=== PATIENT | female | born 1995 | race American Indian/Alaskan Native ===

== ENCOUNTER 2017-11-16 17:18 | Emergency (ER) | payer OTHER ==
[2017-11-16 18:18] LABS: Basophils % (Auto) 0.3 % (0.0-1.8); Eosinophils % (Auto) 0.1 % (0.0-4.3); Hematocrit 41.9 % (30.3-42.9); Hemoglobin 14.2 gm/dl (10.1-14.3); Mean Corpuscular HGB Conc 34 % (30-34); Mean Corpuscular Hemoglobin 32 pg (28-32); Mean Corpuscular Volume 96 fl (79-97); Platelet Count 293 K/mm3 (140-440); Red Blood Count 4.39 M/mm3 (3.65-5.03); Red Cell Distribution Width 12.9 % (13.2-15.2); White Blood Count 5.7 K/mm3 (4.5-11.0)
--- NOTE | 2017-11-16 18:21 | Emergency Department Report ---
ED Shortness of Breath HPI - General Chief Complaint: Dyspnea/Respdistress Stated Complaint: VOMITING/NAUSEA/VISUAL SPOTS Source: patient Mode of arrival: Ambulatory Limitations: No Limitations - History of Present Illness Initial Comments: 21-year-old female with past medical history anxiety presents with complaint of onset of palpitations while resting at home. Patient also complains of slightly sore throat. Patient states that she got slightly lightheaded for a few seconds and then the sensation went away. Patient on exam is awake alert and oriented 3 not in acute distress. States she feels slight palpitations. For lucid awake alert and oriented. Denies dysuria or increased urinary frequency abdominal pain shortness of breath. States that when she had this episode she felt slightly short of breath but it dissipated quickly. Patient denies alcohol smoking or any drug use adamantly. Denies using any stimulants. States she felt slightly anxious earlier. MD Complaint: shortness of breath, cough -: This evening Severity: mild Context: anxiety - Related Data Previous Rx's Medication Instructions Recorded Last Taken Type Hydroxyzine HCl 25 mg PO Q8H PRN #12 tablet 11/16/17 Unknown Rx Ibuprofen [Motrin] 600 mg PO Q8H PRN #30 tablet 11/16/17 Unknown Rx Allergies Allergy/AdvReac Type Severity Reaction Status Date / Time No Known Allergies Allergy Unverified 11/16/17 17:38 ED Review of Systems ROS: Stated complaint: VOMITING/NAUSEA/VISUAL SPOTS Other details as noted in HPI Constitutional: denies: chills, fever Eyes: denies: eye pain, eye discharge, vision change ENT: denies: ear pain, throat pain Respiratory: denies: cough, shortness of breath, wheezing Cardiovascular: palpitations. denies: chest pain Endocrine: no symptoms reported Gastrointestinal: denies: abdominal pain, nausea, diarrhea Genitourinary: denies: urgency, dysuria, discharge Musculoskeletal: denies: back pain, joint swelling, arthralgia Skin: denies: rash, lesions Neurological: denies: headache, weakness, paresthesias Psychiatric: denies: anxiety, depression Hematological/Lymphatic: denies: easy bleeding, easy bruising ED Past Medical Hx - Past Medical History Previous Medical History?: No - Surgical History Past Surgical History?: No - Social History Smoking Status: Never Smoker Substance Use Type: None - Medications Home Medications: Home Medications Medication Instructions Recorded Confirmed Last Taken Type Hydroxyzine HCl 25 mg PO Q8H PRN #12 tablet 11/16/17 Unknown Rx Ibuprofen [Motrin] 600 mg PO Q8H PRN #30 tablet 11/16/17 Unknown Rx ED Physical Exam - General Limitations: No Limitations General appearance: alert, in no apparent distress - Head Head exam: Present: atraumatic, normocephalic - Eye Eye exam: Present: normal appearance, PERRL, EOMI - ENT ENT exam: Present: mucous membranes moist - Neck Neck exam: Present: normal inspection - Respiratory Respiratory exam: Present: normal lung sounds bilaterally. Absent: respiratory distress - Cardiovascular Cardiovascular Exam: Present: normal rhythm, tachycardia. Absent: systolic murmur, diastolic murmur, rubs, gallop - GI/Abdominal GI/Abdominal exam: Present: soft, normal bowel sounds - Extremities Exam Extremities exam: Present: normal inspection - Back Exam Back exam: Present: normal inspection - Neurological Exam Neurological exam: Present: alert, oriented X3 - Psychiatric Psychiatric exam: Present: normal affect, normal mood - Skin Skin exam: Present: warm, dry, intact, normal color. Absent: rash ED Course Vital Signs 11/16/17 11/16/17 11/16/17 17:33 18:55 20:58 Temperature 100.7 F H Pulse Rate 133 H 106 H Respiratory 18 20 18 Rate Blood Pressure 126/83 Blood Pressure 129/79 [Left] O2 Sat by Pulse 100 99 Oximetry ED Medical Decision Making - Lab Data Result diagrams: 11/16/17 18:04 11/16/17 18:04 - Medical Decision Making A/P: Anxiety attack 1-patient feels significantly better. Tachycardia has improved. No longer febrile. 2-as patient was tachycardic with some pleurisy I ordered d-dimer which was slightly positive. CTA of chest performed which shows no overt pulmonary embolism. I discussed this with . Strep negative, influenza negative 3-hydroxyzine when necessary for anxiety. I advised the patient to remain well- hydrated. Patient has no suicidal or homicidal ideation. No clinical intoxication noted. Patient is fully lucid awake alert and oriented and not in acute distress. 4-follow-up with primary care doctor. I referred patient. Critical care attestation.: If time is entered above; I have spent that time in minutes in the direct care of this critically ill patient, excluding procedure time. ED Disposition Clinical Impression: Anxiety, Tachycardia Disposition: DC-01 TO HOME OR SELFCARE Is pt being admited?: No Does the pt Need Aspirin: No Condition: Stable Instructions: Anxiety (ED), Upper Respiratory Infection (ED), Viral Syndrome ( ED) Prescriptions: Hydroxyzine HCl 25 mg PO Q8H PRN #12 tablet PRN Reason: Anxiety Ibuprofen [Motrin] 600 mg PO Q8H PRN #30 tablet PRN Reason: Fever Referrals: [facility] [Outside] - 3-5 Days [facility] [Outside] - 3-5 Days Forms: Accompanied Note, Work/School Release Form(ED) Time of Disposition: 21:04
[2017-11-16] MEDS ORDERED: NACL 0.9% 1000 ML 1,000 ML IV ONE (18:30)
[2017-11-16] MEDS ORDERED: VALIUM PO ONE (18:30)
[2017-11-16] MEDS ORDERED: TYLENOL PO ONE (18:31)
[2017-11-16 18:35] LABS: Anion Gap 22 mmol/L; BUN/Creatinine Ratio 14; Blood Urea Nitrogen 10 mg/dL (7-17); Calcium 9.9 mg/dL (8.4-10.2); Carbon Dioxide 24 mmol/L (22-30); Chloride 100.6 mmol/L (98-107); Glucose 93 mg/dL (65-100); Potassium 3.8 mmol/L (3.6-5.0); Sodium 143 mmol/L (137-145)
[2017-11-16 19:13] LABS: Bacteria,Urine 1+ /HPF (Negative); Bilirubin,Urine NEG (Negative); Blood,Urine NEG (Negative); Ketones,Urine 20 mg/dL (Negative); Leukocyte Esterase,Urine NEG (Negative); Mucus,Urine 3+ /HPF; Nitrite,Urine NEG (Negative)
[2017-11-16] MEDS ORDERED: NACL ONE (19:15)
--- NOTE | 2017-11-16 19:56 | XRay Report ---
FINAL REPORT EXAM: XR CHEST ROUTINE 2V HISTORY: pending urine hcg, cough w fever TECHNIQUE: PA and lateral chest radiographs PRIORS: None. FINDINGS: No mediastinal shift. Cardiac silhouette is not enlarged. No pneumothorax, effusion, or focal pulmonary opacity. No acute skeletal finding. IMPRESSION: No focal pulmonary opacity.
--- NOTE | 2017-11-16 20:07 | Cat Scan Report ---
FINAL REPORT EXAM: CT ANGIO CHEST HISTORY: + d-dimer, tachycardia TECHNIQUE: CT imaging obtained through the chest in pulmonary angiographic phase following intravenous administration of contrast. Transaxial, Coronal and sagittal reformats with maximal intensity projections are provided. PRIORS: Chest radiograph of the same date FINDINGS: Normal caliber main pulmonary artery. No central pulmonary embolism. Contrast opacification of the segmental and subsegmental pulmonary arteries is insufficient for more detailed evaluation of pulmonary embolism. No interventricular bowing. Heart size is normal. No pericardial effusion. Thoracic aorta is normal in course and caliber. No periaortic fluid or stranding. No pneumothorax, effusion or focal airspace disease. The central airways are patent. No bronchiectasis. Imaged portion of the upper abdomen is unremarkable. The superficial soft tissues are unremarkable. No acute bony abnormality or worrisome osseous lesions identified. IMPRESSION: No central pulmonary embolism or other acute finding. Contrast opacification of the segmental and subsegmental pulmonary arterial branches is insufficient for more detailed evaluation of pulmonary embolism.
[2017-11-16 21:01] VITALS: BP 129/79
== END 2017-11-16 21:59 | disposition home or self-care (01) ==
LOC: ED 17:18
DX: F41.9 Anxiety disorder, unspecified (principal); R00.0 Tachycardia, unspecified
CPT/HCPCS: 36415; 71020; 71275; 80048; 81001; 81025; 85025; 85379; 87116; 87400; 87430; 93005; 93010; 99285; J7030; Q9967

== ENCOUNTER 2018-01-03 21:57 | Emergency (ER) | payer SELFPAY ==
[2018-01-03 22:17] VITALS: BP 119/75
[2018-01-03 22:55] LABS: BUN/Creatinine Ratio 10; Blood Urea Nitrogen 6 mg/dL (7-17); Calcium 9.6 mg/dL (8.4-10.2); Hemolysis Index 8
[2018-01-03 23:16] LABS: Basophils % (Auto) 0.5 % (0.0-1.8); Eosinophils # (Auto) 0.1 K/mm3 (0.0-0.4); Eosinophils % (Auto) 1.7 % (0.0-4.3); Hematocrit 41.3 % (30.3-42.9); Hemoglobin 13.8 gm/dl (10.1-14.3); Lymphocytes # (Auto) 2.4 K/mm3 (1.2-5.4); Lymphocytes % (Auto) 45.1 % (13.4-35.0); Mean Corpuscular HGB Conc 33 % (30-34); Mean Corpuscular Hemoglobin 32 pg (28-32); Mean Corpuscular Volume 96 fl (79-97); Monocytes # (Auto) 0.5 K/mm3 (0.0-0.8); Monocytes % (Auto) 10.3 % (0.0-7.3); Platelet Count 347 K/mm3 (140-440); Red Blood Count 4.29 M/mm3 (3.65-5.03); Red Cell Distribution Width 13.3 % (13.2-15.2)
== END 2018-01-03 23:00 | disposition left against medical advice (07) ==
LOC: ED 21:57
DX: R11.0 Nausea (principal); Z53.21 Procedure and treatment not carried out due to patient leaving prior to being seen by health care provider
CPT/HCPCS: 36415; 80048; 84703; 85025; 93005; 93010

== ENCOUNTER 2018-01-24 23:17 | Emergency (ER) | payer SELFPAY ==
[2018-01-25 00:08] LABS: Basophils % (Auto) 0.7 % (0.0-1.8); Eosinophils # (Auto) 0.1 K/mm3 (0.0-0.4); Eosinophils % (Auto) 1.9 % (0.0-4.3); Hematocrit 40.6 % (30.3-42.9); Hemoglobin 13.5 gm/dl (10.1-14.3); Lymphocytes % (Auto) 40.5 % (13.4-35.0); Mean Corpuscular HGB Conc 33 % (30-34); Mean Corpuscular Hemoglobin 32 pg (28-32); Mean Corpuscular Volume 96 fl (79-97); Monocytes # (Auto) 0.5 K/mm3 (0.0-0.8); Monocytes % (Auto) 9.7 % (0.0-7.3); Platelet Count 309 K/mm3 (140-440); Red Blood Count 4.22 M/mm3 (3.65-5.03); Red Cell Distribution Width 13.3 % (13.2-15.2)
[2018-01-25 00:18] LABS: Bilirubin,Urine NEG (Negative); Blood,Urine LG (Negative); Color,Urine Yellow (Yellow); Mucus,Urine FEW /HPF; Protein,Urine <15 mg/dL mg/dL (Negative); Urobilinogen,Urine < 2.0 mg/dL (<2.0)
[2018-01-25 02:04] LABS: BUN/Creatinine Ratio 13; Blood Urea Nitrogen 8 mg/dL (7-17); Calcium 9.6 mg/dL (8.4-10.2); Hemolysis Index 5
--- NOTE | 2018-01-25 02:18 | Emergency Department Report ---
ED Female HPI - General Chief complaint: Recheck/Abnormal Lab/Rx Stated complaint: ABDOMINAL PAIN,DIZZY Time Seen by Provider: 01/25/18 00:49 Source: patient, family Mode of arrival: Ambulatory Limitations: No Limitations - History of Present Illness Initial comments: Patient here reported that she took multiple tests at home reports that results are unclear. She said she had vaginal bleed in lower abdominal pain that started on 01/20/2018. She said bleed and had slowed down. Denies any nausea or vomiting. Denies any vaginal discharge. Denies any fever or chills. Denies any urinary burning frequency or urgency. Patient reported pelvic pain is 6-8 out of 10 and cramping. Denies any back pain. Nothing makes the pain better and nothing makes it worse. She denies taking any over- the-counter medication to help with pain. Patient has a history of irregular menstrual period up in interviewing her. She is not currently on any control. MD Complaint: vaginal bleeding, pelvic pain, other (patient here to get test to confirm ) Onset/Timin -: days(s) Location: suprapubic Radiation: non-radiating Severity: moderate, severe Severity scale (0 -10): 8 Quality: cramping Consistency: intermittent Improves with: none Worsens with: none Are you Now?: No (patient unsure) Last Menstrual Period: 12/13/17 EDC: 09/19/18 Associated Symptoms: vaginal bleeding, abdominal pain. denies: vaginal discharge, nausea/vomiting, fever/chills, headaches, loss of appetite, dysuria, hematuria, rash, seizure, shortness of breath, syncope, weakness - Related Data Sexually active: Yes Previous Rx's Medication Instructions Recorded Last Taken Type Hydroxyzine HCl 25 mg PO Q8H PRN #12 tablet 11/16/17 Unknown Rx Ibuprofen [Motrin] 600 mg PO Q8H PRN #30 tablet 11/16/17 Unknown Rx Sulfamethoxazole/Trimethoprim 1 each PO BID 5 Days #10 tablet 01/25/18 Unknown Rx [Bactrim DS TAB] Allergies Allergy/AdvReac Type Severity Reaction Status Date / Time No Known Allergies Allergy Unverified 11/16/17 17:38 ED Review of Systems ROS: Stated complaint: ABDOMINAL PAIN,DIZZY Other details as noted in HPI Comment: All other systems reviewed and negative Constitutional: no symptoms reported Respiratory: no symptoms reported Cardiovascular: denies: chest pain, palpitations, dyspnea on exertion, edema, syncope, paroxysmal nocturnal dyspnea Gastrointestinal: abdominal pain. denies: nausea, vomiting, diarrhea, constipation Genitourinary: hematuria, abnormal menses, other (vaginal bleed and requesting test and ultrasound). denies: urgency, dysuria, frequency, discharge , dyspareunia Musculoskeletal: denies: joint swelling, arthralgia, myalgia Skin: denies: rash Neurological: denies: headache, numbness, paresthesias, confusion, vertigo ED Past Medical Hx - Past Medical History Previous Medical History?: No - Surgical History Past Surgical History?: No - Family History Family history: no significant - Social History Smoking Status: Never Smoker Substance Use Type: None - Medications Home Medications: Home Medications Medication Instructions Recorded Confirmed Last Taken Type Hydroxyzine HCl 25 mg PO Q8H PRN #12 tablet 11/16/17 Unknown Rx Ibuprofen [Motrin] 600 mg PO Q8H PRN #30 tablet 11/16/17 Unknown Rx Sulfamethoxazole/Trimethoprim 1 each PO BID 5 Days #10 tablet 01/25/18 Unknown Rx [Bactrim DS TAB] ED Physical Exam - General Limitations: No Limitations General appearance: alert, in no apparent distress - Head Head exam: Present: atraumatic, normocephalic, normal inspection - Eye Eye exam: Present: normal appearance, PERRL, EOMI Pupils: Present: normal accommodation - ENT ENT exam: Present: normal exam, normal orophraynx, mucous membranes moist - Neck Neck exam: Present: normal inspection, full ROM. Absent: tenderness, meningismus, lymphadenopathy, thyromegaly - Respiratory Respiratory exam: Present: normal lung sounds bilaterally. Absent: respiratory distress, chest wall tenderness - Cardiovascular Cardiovascular Exam: Present: regular rate, normal rhythm, normal heart sounds. Absent: systolic murmur, diastolic murmur - GI/Abdominal GI/Abdominal exam: Present: soft, normal bowel sounds. Absent: distended, tenderness, guarding, rebound, rigid, organomegaly, mass, bruit, pulsatile mass , hernia - External exam: Present: normal external exam. Absent: erythema, swelling, lesions, lacerations, ecchymosis, bleeding - Extremities Exam Extremities exam: Present: normal inspection, full ROM, normal capillary refill , other (clubbing, cyanosis or edema. +2 pulses all extremities and no neurovascular compromise). Absent: tenderness, pedal edema, joint swelling, calf tenderness - Back Exam Back exam: Present: normal inspection, full ROM. Absent: tenderness, CVA tenderness (R), CVA tenderness (L), muscle spasm, paraspinal tenderness, vertebral tenderness, rash noted - Neurological Exam Neurological exam: Present: alert, oriented X3, normal gait, reflexes normal. Absent: motor sensory deficit - Psychiatric Psychiatric exam: Present: normal affect, normal mood - Skin Skin exam: Present: warm, dry, intact, normal color. Absent: rash ED Course Vital Signs 01/24/18 01/24/18 01/25/18 23:18 23:31 02:17 Temperature 98.7 F 98.7 F Pulse Rate 111 H 107 H 92 H Respiratory 18 20 Rate Blood Pressure 134/85 134/85 Blood Pressure 134/85 [Left] O2 Sat by Pulse 100 98 Oximetry - Reevaluation(s) Reevaluation #1: 01/25/18 02:23 Patient is stable she is able to tolerate oral liquids in emergency room without any difficulties. Patient urinalysis revealed she has greater than 500 glucose and patient did denies that she is a diabetic. POC glucose was 107 and serum glucoses of 141. ED Medical Decision Making - Lab Data Result diagrams: 01/24/18 23:51 01/25/18 01:46 Lab Results 01/24/18 01/24/18 01/24/18 Range/Units 23:51 23:51 23:51 WBC 4.8 (4.5-11.0) K/mm3 RBC 4.22 (3.65-5.03) M/mm3 Hgb 13.5 (10.1-14.3) gm/dl Hct 40.6 (30.3-42.9) % MCV 96 (79-97) fl MCH 32 (28-32) pg MCHC 33 (30-34) % RDW 13.3 (13.2-15.2) % Plt Count 309 (140-440) K/mm3 Lymph % (Auto) 40.5 H (13.4-35.0) % [place] % (Auto) 9.7 H (0.0-7.3) % Eos % (Auto) 1.9 (0.0-4.3) % Baso % (Auto) 0.7 (0.0-1.8) % Lymph # 2.0 (1.2-5.4) K/mm3 [place] # 0.5 (0.0-0.8) K/mm3 Eos # 0.1 (0.0-0.4) K/mm3 Baso # 0.0 (0.0-0.1) K/mm3 Seg Neutrophils % 47.2 (40.0-70.0) % Seg Neutrophils # 2.3 (1.8-7.7) K/mm3 Sodium (137-145) mmol/L Potassium (3.6-5.0) mmol/L Chloride (98-107) mmol/L Carbon Dioxide (22-30) mmol/L Anion Gap mmol/L BUN (7-17) mg/dL Creatinine (0.7-1.2) mg/dL Estimated GFR ml/min BUN/Creatinine Ratio % Glucose (65-100) mg/dL Calcium (8.4-10.2) mg/dL HCG, Qual (Negative) HCG, Quant 0.522 (0-4) mIU/mL Urine Color Yellow (Yellow) Urine Turbidity Clear (Clear) Urine pH 5.0 (5.0-7.0) Ur Specific [place] 1.011 (1.003-1.030) Urine Protein <15 mg/dl (Negative) mg/dL Urine Glucose (UA) >=500 (Negative) mg/dL Urine Ketones Neg (Negative) mg/dL Urine Blood Lg (Negative) Urine Nitrite Neg (Negative) Urine Bilirubin Neg (Negative) Urine Urobilinogen < 2.0 (<2.0) mg/dL Ur Leukocyte Esterase Neg (Negative) Urine WBC (Auto) 8.0 H (0.0-6.0) /HPF Urine RBC (Auto) 77.0 (0.0-6.0) /HPF U Epithel Cells (Auto) 2.0 (0-13.0) /HPF Urine Mucus Few /HPF Blood Type Antibody Screen 01/24/18 01/24/18 01/25/18 Range/Units 23:51 23:51 01:46 WBC (4.5-11.0) K/mm3 RBC (3.65-5.03) M/mm3 Hgb (10.1-14.3) gm/dl Hct (30.3-42.9) % MCV (79-97) fl MCH (28-32) pg MCHC (30-34) % RDW (13.2-15.2) % Plt Count (140-440) K/mm3 Lymph % (Auto) (13.4-35.0) % [place] % (Auto) (0.0-7.3) % Eos % (Auto) (0.0-4.3) % Baso % (Auto) (0.0-1.8) % Lymph # (1.2-5.4) K/mm3 [place] # (0.0-0.8) K/mm3 Eos # (0.0-0.4) K/mm3 Baso # (0.0-0.1) K/mm3 Seg Neutrophils % (40.0-70.0) % Seg Neutrophils # (1.8-7.7) K/mm3 Sodium 138 (137-145) mmol/L Potassium 3.8 (3.6-5.0) mmol/L Chloride 98.4 (98-107) mmol/L Carbon Dioxide 24 (22-30) mmol/L Anion Gap 19 mmol/L BUN 8 (7-17) mg/dL Creatinine 0.6 L (0.7-1.2) mg/dL Estimated GFR > 60 ml/min BUN/Creatinine Ratio 13 % Glucose 141 H (65-100) mg/dL Calcium 9.6 (8.4-10.2) mg/dL HCG, Qual Negative (Negative) HCG, Quant (0-4) mIU/mL Urine Color (Yellow) Urine Turbidity (Clear) Urine pH (5.0-7.0) Ur Specific [place] (1.003-1.030) Urine Protein (Negative) mg/dL Urine Glucose (UA) (Negative) mg/dL Urine Ketones (Negative) mg/dL Urine Blood (Negative) Urine Nitrite (Negative) Urine Bilirubin (Negative) Urine Urobilinogen (<2.0) mg/dL Ur Leukocyte Esterase (Negative) Urine WBC (Auto) (0.0-6.0) /HPF Urine RBC (Auto) (0.0-6.0) /HPF U Epithel Cells (Auto) (0-13.0) /HPF Urine Mucus /HPF Blood Type A POSITIVE Antibody Screen Negative I suspect patient started her menses 3 days ago due to large amount of blood in her urine and reports of abdominal cramping. Her qualitative hCG negative and quantitative was negative so no suspected. Urine culture sent. POC glucose is 107 - Medical Decision Making ED course: Patient reports to the emergency room and requests then test done because she said she took several tests at home and the results were unclear. She says she hasn't seen her. Since 12/13/2017 but reports she is missed periods in the past. 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 She reports she is having abdominal cramping and vaginal bleeding that started 3 days ago on 01/20/2018. HCG qualitative negative and quantitative is also less than 2. This would suggest the patient has never been because she had a miscarriage 3 days ago she would still have serum quantitative that is greater than 2. Her abdominal exam is benign. Patient's CBC is stable, BMP is stable except her blood glucose is 141, urinalysis suggests patient with urine glucose at greater than 500 and patient denies diabetic status. POC glucose is at 107. Patient will large amount of blood in her urine and few white blood cell. Patient says she started having abdominal cramping with vaginal bleeding and on 01/20/2018 and I suspect this is from her menses as she said had slowed down and she has not passed any clots. External vaginal area is normal. Patient orally challenge in emergency room and tolerated water without any difficulties. I discussed patient her laboratory findings, urinalysis blood glucose and urine glucose elevation. I discussed the patient and I'll refer her to [facility] for Pap smear and physical exam for primary care and also she can follow-up with [facility] for TECHNICAL SALES MANAGER. I Discussed with her that she will need to call to schedule an appointment on 01/26/2018 for follow-up visit. I also told her that she needs to not eat or drink anything and try to get an appointment for early in the morning where she can have her labs drawn to check her blood sugar. Patient also with small urinary tract infection and will treat with Bactrim DS where she can get at [facility] for free. She was understanding the discharge instruction, diagnosis and treatment. In discharge home with her friend in stable condition. Critical care attestation.: If time is entered above; I have spent that time in minutes in the direct care of this critically ill patient, excluding procedure time. ED Disposition Clinical Impression: Abnormal menstrual cycle, Vaginal bleeding, Acute cystitis with hematuria, Glucosuria, Hyperglycemia Encounter for test Qualifiers: test result: negative Qualified Code(s): Z32.02 - Encounter for test, result negative Abdominal pain Qualifiers: Abdominal location: lower abdomen, unspecified Qualified Code(s): R10.30 - Lower abdominal pain, unspecified Disposition: - TO HOME OR SELFCARE Is pt being admited?: No Does the pt Need Aspirin: No Condition: Stable Instructions: Hyperglycemia, Non-Diabetic (ED), Urinary Tract Infection in Women (ED), Abdominal Pain (ED), Menstruation (ED) Additional Instructions: Your hormone level and blood test suggest that you are not and was never Vaginal bleeding and is from your menstrual cycle which is abnormal so you need to follow-up at [facility] primary care and TECHNICAL SALES MANAGER for further evaluation. Please call on 01/26/2018 to schedule an appointment. Your urine glucose was elevated and blood glucose was also elevated at 141 so you'll need to schedule the appointment for in the morning where he can have Fasting blood glucose. Please do not eat or drink anything on the day of your appointment. Please practice safe sex Increase her fluid intake Please take Bactrim DS for urinary tract infection Prescriptions: Sulfamethoxazole/Trimethoprim [Bactrim DS TAB] 1 each PO BID 5 Days #10 tablet Referrals: [facility] [Outside] - 01/26/18 ([facility] has primary care and TECHNICAL SALES MANAGER's a please call and schedule an appointment and let them know that you were seen in emergency room at [facility] and your blood sugar was elevated and you were told to have blood sugar checked.) Forms: Work/School Release Form(ED)
[2018-01-25 02:51] VITALS: BP 129/81
== END 2018-01-25 02:51 | disposition home or self-care (01) ==
LOC: ED 23:17
DX: Z32.02 Encounter for pregnancy test, result negative (principal); N92.6 Irregular menstruation, unspecified; N30.01 Acute cystitis with hematuria; R73.9 Hyperglycemia, unspecified
CPT/HCPCS: 36415; 80048; 81001; 82962; 84702; 84703; 85025; 86850; 86900; 86901; 99283

== ENCOUNTER 2018-03-11 11:55 | Emergency (ER) | payer OTHER ==
[2018-03-11 12:12] VITALS: BP 122/72
[2018-03-11 13:07] LABS: HCG Qualitative,Urine Positive (Negative)
[2018-03-11 13:09] LABS: Bilirubin,Urine NEG (Negative); Blood,Urine NEG (Negative); Color,Urine Yellow (Yellow); Mucus,Urine 3+ /HPF
--- NOTE | 2018-03-11 14:23 | Emergency Department Report ---
ED General Adult HPI - General Chief complaint: Nausea/Vomiting/Diarrhea Stated complaint: LIGHT HEADED, NAUSEA Time Seen by Provider: 03/11/18 13:49 Source: patient Mode of arrival: Ambulatory Limitations: No Limitations - History of Present Illness Initial comments: Patient is a 22-year-old Irish female who is presenting with some mild lightheadedness and nausea for the past 2-3 days. Patient has not vomited. Patient states that she has no abdominal pain chest pain shortness of breath at this time. Patient states her last missed her period was January 20 she is not sure she is and has not taken a test. - Related Data Previous Rx's Medication Instructions Recorded Last Taken Type Hydroxyzine HCl 25 mg PO Q8H PRN #12 tablet 11/16/17 Unknown Rx Ibuprofen [Motrin] 600 mg PO Q8H PRN #30 tablet 11/16/17 Unknown Rx Sulfamethoxazole/Trimethoprim 1 each PO BID 5 Days #10 tablet 01/25/18 Unknown Rx [Bactrim DS TAB] Allergies Allergy/AdvReac Type Severity Reaction Status Date / Time No Known Allergies Allergy Unverified 11/16/17 17:38 ED Review of Systems ROS: Stated complaint: LIGHT HEADED, NAUSEA Other details as noted in HPI Comment: All other systems reviewed and negative ED Past Medical Hx - Past Medical History Previous Medical History?: No - Surgical History Past Surgical History?: No - Social History Smoking Status: Never Smoker Substance Use Type: None - Medications Home Medications: Home Medications Medication Instructions Recorded Confirmed Last Taken Type Hydroxyzine HCl 25 mg PO Q8H PRN #12 tablet 11/16/17 Unknown Rx Ibuprofen [Motrin] 600 mg PO Q8H PRN #30 tablet 11/16/17 Unknown Rx Sulfamethoxazole/Trimethoprim 1 each PO BID 5 Days #10 tablet 01/25/18 Unknown Rx [Bactrim DS TAB] ED Physical Exam - General Limitations: No Limitations General appearance: alert, in no apparent distress - Head Head exam: Present: atraumatic, normocephalic - Eye Eye exam: Present: normal appearance - ENT ENT exam: Present: mucous membranes moist - Neck Neck exam: Present: normal inspection - Respiratory Respiratory exam: Present: normal lung sounds bilaterally. Absent: respiratory distress, wheezes, rales, rhonchi - Cardiovascular Cardiovascular Exam: Present: regular rate, normal rhythm. Absent: systolic murmur, diastolic murmur, rubs, gallop - GI/Abdominal GI/Abdominal exam: Present: soft, normal bowel sounds. Absent: distended, tenderness, guarding, rebound, rigid - Extremities Exam Extremities exam: Present: normal inspection - Back Exam Back exam: Present: normal inspection - Neurological Exam Neurological exam: Present: alert, oriented X3 - Psychiatric Psychiatric exam: Present: normal affect, normal mood - Skin Skin exam: Present: warm, dry, intact, normal color. Absent: rash ED Course Vital Signs 03/11/18 12:07 Temperature 98.6 F Pulse Rate 100 H Respiratory 16 Rate Blood Pressure 122/72 O2 Sat by Pulse 100 Oximetry ED Medical Decision Making - Medical Decision Making Patient's test was positive. Patient is not having any bleeding or abdominal pain. Patient will be referred to gynecology. Patient does show early signs of urinary tract infection with small amount of leuk esterase present patient will be started on Macrobid as well. Critical care attestation.: If time is entered above; I have spent that time in minutes in the direct care of this critically ill patient, excluding procedure time. ED Disposition Clinical Impression: Qualifiers: Weeks of gestation: unspecified Qualified Code(s): Z34.90 - Encounter for supervision of normal , unspecified, unspecified trimester UTI (urinary tract infection) Qualifiers: Urinary tract infection type: acute cystitis Hematuria presence: without hematuria Qualified Code(s): N30.00 - Acute cystitis without hematuria Disposition: TO HOME OR SELFCARE Is pt being admited?: No Does the pt Need Aspirin: No Condition: Stable Instructions: Urinary Tract Infection in Women (ED), (ED) Referrals: PRIMARY CARE, [Primary Care Provider] - 3-5 Days
== END 2018-03-11 14:29 | disposition home or self-care (01) ==
LOC: ED 11:55
DX: O23.40 Unspecified infection of urinary tract in pregnancy, unspecified trimester (principal); Z3A.00 Weeks of gestation of pregnancy not specified
CPT/HCPCS: 81001; 81025; 99282

== ENCOUNTER 2020-02-03 08:09 | Emergency (ER) | payer MEDICAID ==
[2020-02-03 10:08] VITALS: BP 168/72
--- NOTE | 2020-02-03 10:35 | Emergency Department Report ---
ED General Adult HPI - General Chief complaint: Nausea/Vomiting/Diarrhea Stated complaint: STOMACH PAIN/VOMIT/DIARRHEA Time Seen by Provider: 02/03/20 10:34 Source: patient Mode of arrival: Ambulatory Limitations: No Limitations - History of Present Illness Initial comments: 24-year-old female with no past medical history presents with complaint of abdom inal pain. Patient has complaints of nausea vomiting and diarrhea. Patient states currently the abdominal pain is not present. Patient states that currently she is on her cycle. Patient denies any dysuria. Patient eyes any fever recent travel. Patient denies any cough. - Related Data Previous Rx's Medication Instructions Recorded Last Taken Type Ibuprofen [Motrin] 600 mg PO Q8H PRN #30 tablet 11/16/17 Unknown Rx hydrOXYzine HCL [Hydroxyzine HCl] 25 mg PO Q8H PRN #12 tablet 11/16/17 Unknown Rx Sulfamethoxazole/Trimethoprim 1 each PO BID 5 Days #10 tablet 01/25/18 Unknown Rx [Bactrim DS TAB] Nitrofurantoin [place]/M-Cryst 100 mg PO Q12HR #14 capsule 03/11/18 Unknown Rx [Macrobid CAP] Ondansetron [Zofran Odt] 4 mg PO Q8HR PRN #10 tab.rapdis 03/11/18 Unknown Rx Cetirizine HCl [ZyrTEC] 10 mg PO QAM 14 Days #14 capsule 01/07/19 Unknown Rx Fluticasone [Flonase] 1 spray NS QDAY 14 Days #1 bottle 01/07/19 Unknown Rx Allergies Allergy/AdvReac Type Severity Reaction Status Date / Time No Known Allergies Allergy Unverified 11/16/17 17:38 ED Review of Systems ROS: Stated complaint: STOMACH PAIN/VOMIT/DIARRHEA Other details as noted in HPI Constitutional: denies: chills, fever Eyes: denies: eye pain, eye discharge, vision change ENT: denies: ear pain, throat pain Respiratory: denies: cough, shortness of breath, wheezing Cardiovascular: denies: chest pain, palpitations Endocrine: no symptoms reported Gastrointestinal: abdominal pain, nausea, vomiting, diarrhea Genitourinary: denies: urgency, dysuria, discharge Musculoskeletal: denies: back pain, joint swelling, arthralgia Skin: denies: rash, lesions Neurological: denies: headache, weakness, paresthesias Psychiatric: denies: anxiety, depression Hematological/Lymphatic: denies: easy bleeding, easy bruising ED Past Medical Hx - Past Medical History Previous Medical History?: No - Surgical History Past Surgical History?: No - Social History Smoking Status: Never Smoker Substance Use Type: None - Medications Home Medications: Home Medications Medication Instructions Recorded Confirmed Last Taken Type Ibuprofen [Motrin] 600 mg PO Q8H PRN #30 tablet 11/16/17 Unknown Rx hydrOXYzine HCL [Hydroxyzine HCl] 25 mg PO Q8H PRN #12 tablet 11/16/17 Unknown Rx Sulfamethoxazole/Trimethoprim 1 each PO BID 5 Days #10 tablet 01/25/18 Unknown Rx [Bactrim DS TAB] Nitrofurantoin [place]/M-Cryst 100 mg PO Q12HR #14 capsule 03/11/18 Unknown Rx [Macrobid CAP] Ondansetron [Zofran Odt] 4 mg PO Q8HR PRN #10 tab.rapdis 03/11/18 Unknown Rx Cetirizine HCl [ZyrTEC] 10 mg PO QAM 14 Days #14 capsule 01/07/19 Unknown Rx Fluticasone [Flonase] 1 spray NS QDAY 14 Days #1 bottle 01/07/19 Unknown Rx ED Physical Exam - General Limitations: No Limitations General appearance: alert, in no apparent distress - Head Head exam: Present: atraumatic, normocephalic - Eye Eye exam: Present: normal appearance - ENT ENT exam: Present: mucous membranes moist - Neck Neck exam: Present: normal inspection - Respiratory Respiratory exam: Present: normal lung sounds bilaterally. Absent: respiratory distress - Cardiovascular Cardiovascular Exam: Present: regular rate, normal rhythm. Absent: systolic murmur, diastolic murmur, rubs, gallop - GI/Abdominal GI/Abdominal exam: Present: soft, normal bowel sounds - Extremities Exam Extremities exam: Present: normal inspection - Back Exam Back exam: Present: normal inspection - Neurological Exam Neurological exam: Present: alert, oriented X3 - Psychiatric Psychiatric exam: Present: normal affect, normal mood - Skin Skin exam: Present: warm, dry, intact, normal color. Absent: rash ED Course Vital Signs 02/03/20 02/03/20 08:20 10:02 Temperature 99.1 F Pulse Rate 82 71 Respiratory 18 21 Rate Blood Pressure 124/76 Blood Pressure 168/72 [Left] O2 Sat by Pulse 100 96 Oximetry ED Medical Decision Making - Lab Data Result diagrams: 02/03/20 11:31 02/03/20 11:31 - Medical Decision Making Patient has a normal lab profile. Patient has refused CT abdomen and pelvis. Patient made aware the risk of potentially a surgical processes such as appendicitis or other inflammatory processes that could be causing her abdominal pain. Patient states that she feels improved and will leave AGAINST MEDICAL ADVICE. Patient is oriented to person place and time and has good decisional capacity. - Differential Diagnosis Ectopic ; pancreatitis; electrolyte abnormality; anemia Critical care attestation.: If time is entered above; I have spent that time in minutes in the direct care of this critically ill patient, excluding procedure time. ED Disposition Clinical Impression: Abdominal pain Disposition: DC-07 LEFT AGAINST MED ADVICE Is pt being admited?: No Condition: Stable Instructions: Abdominal Pain (ED) Referrals: PRIMARY CARE, [Primary Care Provider] - 3-5 Days Time of Disposition: 12:27 Print Language: FILIPINO
[2020-02-03 11:21] LABS: Bilirubin,Urine NEG (Negative); Blood,Urine LG (Negative); Color,Urine Yellow (Yellow); Mucus,Urine FEW /HPF; Protein,Urine <15 mg/dL mg/dL (Negative); Urobilinogen,Urine < 2.0 mg/dL (<2.0)
[2020-02-03 11:30] LABS: HCG Qualitative,Urine Negative (Negative)
[2020-02-03 11:58] LABS: Hematocrit 41.7 % (30.3-42.9); Mean Corpuscular HGB Conc 34 % (30-34); Mean Corpuscular Volume 96 fl (79-97); Platelet Count 301 K/mm3 (140-440); Red Blood Count 4.34 M/mm3 (3.65-5.03); Red Cell Distribution Width 12.7 % (13.2-15.2)
[2020-02-03 12:24] LABS: Alanine Aminotransferase 10 units/L (7-56); Albumin 4.4 g/dL (3.9-5); BUN/Creatinine Ratio 12; Blood Urea Nitrogen 7 mg/dL (7-17); Calcium 9.5 mg/dL (8.4-10.2); Hemolysis Index 1
--- NOTE | 2020-02-03 13:29 | Cat Scan Report ---
CT ABDOMEN AND PELVIS WITHOUT CONTRAST INDICATION: Unspecified abdominal pain. COMPARISON: No relevant prior imaging study available. TECHNIQUE: Axial, coronal and sagittal CT imaging of the abdomen and pelvis was performed without co ntrast. Lack of intravenous contrast limits evaluation of the vascular and solid organs. All CT sca ns at this location are performed using CT dose reduction for ALARA by means of automated exposure co ntrol. FINDINGS: LOWER CHEST: No significant abnormality. LIVER: No significant abnormality. BILIARY: No significant abnormality. PANCREAS: No significant abnormality. SPLEEN: No significant abnormality. ADRENALS: No significant abnormality. KIDNEYS AND URETERS: No significant abnormality. GI TRACT: No significant abnormality of the stomach. Multiple fluid-filled small bowel loops are note d without significant dilatation, thickening or surrounding inflammation. No significant abnormality of the colon or appendix. PERITONEUM: No free fluid. No free air. No fluid collection. LYMPH NODES: No significant adenopathy. VASCULATURE: No significant abnormality. URINARY BLADDER: No significant abnormality. REPRODUCTIVE ORGANS: No significant abnormality. ADDITIONAL FINDINGS: None. SKELETAL SYSTEM: No significant abnormality. IMPRESSION: Possible enteritis without evidence of an acute complication. Signer Name: Xavier Galan MD Signed: 02/03/2020 1:25 PM Workstation Name: [id number]
== END 2020-02-03 15:30 | disposition left against medical advice (07) ==
LOC: ED 08:09
DX: R10.9 Unspecified abdominal pain (principal); R19.7 Diarrhea, unspecified; R11.2 Nausea with vomiting, unspecified; Z79.1 Long term (current) use of non-steroidal anti-inflammatories (NSAID); Z79.899 Other long term (current) drug therapy
CPT/HCPCS: 36415; 74176; 80053; 81001; 81025; 83690; 85027

== ENCOUNTER 2021-10-08 23:55 | Emergency (ER) | payer MEDICAID ==
[2021-10-09 00:01] VITALS: BP 136/84
--- NOTE | 2021-10-10 08:40 | Electrocardiograph Report ---
[facility] Test Date: 2021-10-09 Test Time: 00:13:15 Pat Name: MARSHA JORDAN Department: Room: Gender: F Cable Installation Technician: JENNIFER : 1995 Requested By: PAMELA HAYNES Order Number: [id number] Reading MD: Jose Manuel Robertson Measurements Intervals Stevenson Rate: 94 P: 34 SD: 170 QRS: 40 QRSD: 71 T: 48 QT: 338 QTc: 423 Interpretive Statements Sinus rhythm No previous ECG available for comparison Electronically Signed On 10-10-2021 8:39:46 EST by Jose Manuel Robertson
== END 2021-10-09 01:20 | disposition left against medical advice (07) ==
LOC: ED 23:55
DX: R06.02 Shortness of breath (principal); Z53.21 Procedure and treatment not carried out due to patient leaving prior to being seen by health care provider
CPT/HCPCS: 93005

== ENCOUNTER 2021-10-25 12:53 | Emergency (ER) | payer MEDICAID ==
--- NOTE | 2021-10-25 15:25 | Emergency Department Report ---
ED General Adult HPI - General Chief complaint: Pain General Stated complaint: HEAD PAINS Time Seen by Provider: 10/25/21 14:37 Source: patient Mode of arrival: Ambulatory Limitations: No Limitations - History of Present Illness Initial comments: The patient was evaluated in the emergency department for symptoms described in the history of present illness. He/she was evaluated in the context of the global COVID-19 pandemic, which necessitated consideration that the patient might be at risk for infection with the virus that causes COVID-19. Institu tional protocols and algorithms that pertain to the evaluation of patients at risk for COVID-19 are in a state of rapid change based on information released by regulatory bodies including the CDC and federal and state organizations. These policies and algorithms were followed during the patient's care in the emergency department. Please note that these policies, procedures and recommendations changed on a rapid basis. 25-year-old -[place] female presents to the emergency room complaining of intermittent headaches for the last 2 months. She denies any headache at this time. She also reports that she had a spider bite and has started Keflex 2 days ago. She admits to nausea but took her antibiotics on an empty stomach. Patient still admits to anxiety and is currently on no antianxiety medication. Patient reports she does have a primary care provider but has not follow-up. She states she is currently breast-feeding at this time. She does admit to being overwhelmed with 2 children. States that she does not get out of the house much as her works daily. Her mom has poor health. And her sisters work all the time. Patient admits to being isolated at times. She denies any suicidal homicidal ideation. Severity scale (0 -10): 0 Consistency: now resolved Associated Symptoms: nausea/vomiting (No vomiting) - Related Data Previous Rx's Medication Instructions Recorded Last Taken Type Ibuprofen [Motrin] 600 mg PO Q8H PRN #30 tablet 11/16/17 Unknown Rx hydrOXYzine HCL [Hydroxyzine HCl] 25 mg PO Q8H PRN #12 tablet 11/16/17 Unknown Rx Sulfamethoxazole/Trimethoprim 1 each PO BID 5 Days #10 tablet 01/25/18 Unknown Rx [Bactrim DS TAB] Nitrofurantoin [place]/M-Cryst 100 mg PO Q12HR #14 capsule 03/11/18 Unknown Rx [Macrobid CAP] Ondansetron [Zofran Odt] 4 mg PO Q8HR PRN #10 tab.rapdis 03/11/18 Unknown Rx Cetirizine HCl [ZyrTEC] 10 mg PO QAM 14 Days #14 capsule 01/07/19 Unknown Rx Fluticasone [Flonase] 1 spray NS QDAY 14 Days #1 bottle 01/07/19 Unknown Rx Allergies Allergy/AdvReac Type Severity Reaction Status Date / Time No Known Allergies Allergy Verified 10/25/21 16:03 ED Review of Systems ROS: Stated complaint: HEAD PAINS Other details as noted in HPI Comment: All other systems reviewed and negative ED Past Medical Hx - Social History Smoking Status: Never Smoker Substance Use Type: None - Medications Home Medications: Home Medications Medication Instructions Recorded Confirmed Last Taken Type Ibuprofen [Motrin] 600 mg PO Q8H PRN #30 tablet 11/16/17 Unknown Rx hydrOXYzine HCL [Hydroxyzine HCl] 25 mg PO Q8H PRN #12 tablet 11/16/17 Unknown Rx Sulfamethoxazole/Trimethoprim 1 each PO BID 5 Days #10 tablet 01/25/18 Unknown Rx [Bactrim DS TAB] Nitrofurantoin [place]/M-Cryst 100 mg PO Q12HR #14 capsule 03/11/18 Unknown Rx [Macrobid CAP] Ondansetron [Zofran Odt] 4 mg PO Q8HR PRN #10 tab.rapdis 03/11/18 Unknown Rx Cetirizine HCl [ZyrTEC] 10 mg PO QAM 14 Days #14 capsule 01/07/19 Unknown Rx Fluticasone [Flonase] 1 spray NS QDAY 14 Days #1 bottle 01/07/19 Unknown Rx ED Physical Exam - General Limitations: No Limitations General appearance: alert, in no apparent distress - Head Head exam: Present: atraumatic, normocephalic - Eye Eye exam: Present: normal appearance - ENT ENT exam: Present: mucous membranes moist - Neck Neck exam: Present: normal inspection - Respiratory Respiratory exam: Present: normal lung sounds bilaterally. Absent: respiratory distress - Cardiovascular Cardiovascular Exam: Present: regular rate, normal rhythm. Absent: systolic murmur, diastolic murmur, rubs, gallop - GI/Abdominal GI/Abdominal exam: Present: soft, normal bowel sounds - Extremities Exam Extremities exam: Present: normal inspection - Back Exam Back exam: Present: normal inspection - Neurological Exam Neurological exam: Present: alert, oriented X3 - Psychiatric Psychiatric exam: Present: normal affect, normal mood. Absent: homicidal ideation, suicidal ideation - Skin Skin exam: Present: warm, dry, intact, normal color. Absent: rash ED Course Vital Signs 10/25/21 12:57 Temperature 98.1 F Pulse Rate 106 H Respiratory 16 Rate Blood Pressure 140/84 [Left] O2 Sat by Pulse 100 Oximetry ED Medical Decision Making - Medical Decision Making 25-year-old -[place] female presents to the emergency room complaining of intermittent headaches for the last 2 months. She denies any headache at this time. She also reports that she had a spider bite and has started Keflex 2 days ago. She admits to nausea but took her antibiotics on an empty stomach. Patient still admits to anxiety and is currently on no antianxiety medication. Patient reports she does have a primary care provider but has not follow-up. She states she is currently breast-feeding at this time. She does admit to being overwhelmed with 2 children. States that she does not get out of the house much as her works daily. Her mom has poor health. And her sisters work all the time. Patient admits to being isolated at times. She denies any suicidal homicidal ideation. Critical care attestation.: If time is entered above; I have spent that time in minutes in the direct care of this critically ill patient, excluding procedure time. ED Disposition Clinical Impression: Intermittent headache, Anxiety Disposition: 01 HOME / SELF CARE / HOMELESS Is pt being admited?: No Does the pt Need Aspirin: No Condition: Stable Instructions: Managing Anxiety, Adult Additional Instructions: Labs are stable vital signs improved I like for you to increase your fluid intake as you are nursing and that can cause dehydration which can also cause headaches. I would like for you to follow-up with an PERSONAL INJURY ATTORNEY I have listed their information below for your convenience. Referrals: PRIMARY CAREMD [Primary Care Provider] - 3-5 Days DEMETRIUS NEWSOME MD [Staff Physician] - 3-5 Days [facility] [Provider [facility]] - 3-5 Days [facility] [Provider Group] - 3-5 Days Time of Disposition: 16:34
[2021-10-25 15:58] LABS: Basophils % (Auto) 0.5 % (0.0-1.8); Eosinophils % (Auto) 0.2 % (0.0-4.3); Hematocrit 44.8 % (30.3-42.9); Hemoglobin 14.6 gm/dl (10.1-14.3); Lymphocytes # (Auto) 0.9 K/mm3 (1.2-5.4); Lymphocytes % (Auto) 20.5 % (13.4-35.0); Mean Corpuscular HGB Conc 33 % (30-34); Mean Corpuscular Volume 97 fl (79-97); Monocytes # (Auto) 0.3 K/mm3 (0.0-0.8); Monocytes % (Auto) 7.3 % (0.0-7.3); Platelet Count 320 K/mm3 (140-440); Red Blood Count 4.62 M/mm3 (3.65-5.03); Red Cell Distribution Width 13.1 % (13.2-15.2)
[2021-10-25 16:03] VITALS: BP 112/75
[2021-10-25 16:06] LABS: Blood Urea Nitrogen 7 mg/dL (7-17); Calcium 9.8 mg/dL (8.4-10.2); Hemolysis Index 26
[2021-10-25 16:08] LABS: BUN/Creatinine Ratio 12
== END 2021-10-25 16:41 | disposition home or self-care (01) ==
LOC: ED 12:53
DX: R51.9 Headache, unspecified (principal); F41.9 Anxiety disorder, unspecified
CPT/HCPCS: 36415; 80048; 84702; 85025; 99283

== ENCOUNTER 2021-11-16 05:39 | Emergency (ER) | payer MEDICAID ==
--- NOTE | 2021-11-16 09:33 | XRay Report ---
CHEST 2 VIEWS INDICATION / CLINICAL INFORMATION: chest pain. COMPARISON: Chest x-ray 01/07/2019 FINDINGS: SUPPORT DEVICES: None. HEART / MEDIASTINUM: No significant abnormality. LUNGS / PLEURA: No significant pulmonary or pleural abnormality. No pneumothorax. ADDITIONAL FINDINGS: No significant additional findings. IMPRESSION: 1. No acute findings. Signer Name: Cheko Gruber MD Signed: 11/16/2021 9:28 AM Workstation Name: [id number]
--- NOTE | 2021-11-16 11:58 | Emergency Department Report ---
ED General Adult HPI - General Chief complaint: Chest Pain Stated complaint: CHEST PAIN Time Seen by Provider: 11/16/21 09:09 Source: patient Mode of arrival: Ambulatory Limitations: No Limitations - History of Present Illness Initial comments: 25 y/o female comes in for SANTIAGO that she has had intermittently for several months. Patient reports that she is scheduled for CT scan on November 30, 2021. Patient also complains of racing heart rates shortness of breath and chest pain. She states chest pain has resolved shortness of breath is just slight and racing heart rate has improved. She also reports that her legs feel like they are warm intermittently and started yesterday. Patient does report she suffers from anxiety. She does have a primary care provider but is currently on no anxiety medications. Patient reports that she has a 2-year-old and a 8-month-old at home. She states that she sometimes feels overwhelmed. She denies any suicidal or homicidal ideation. She does have a history of anxiety and actually was in a mental hospital for a few days per patient. Patient has not taken anything for headaches or symptoms as she is breast-feeding. Denies any fever chills no nausea no vomiting. Severity scale (0 -10): 3 Consistency: intermittent (Lower leg feeling warm, and headache), now resolved (Chest pain and heart racing) Associated Symptoms: denies: diaphoresis, fever/chills, loss of appetite, nausea/vomiting - Related Data Previous Rx's Medication Instructions Recorded Last Taken Type Ibuprofen [Motrin] 600 mg PO Q8H PRN #30 tablet 11/16/17 Unknown Rx hydrOXYzine HCL [Hydroxyzine HCl] 25 mg PO Q8H PRN #12 tablet 11/16/17 Unknown Rx Sulfamethoxazole/Trimethoprim 1 each PO BID 5 Days #10 tablet 01/25/18 Unknown Rx [Bactrim DS TAB] Nitrofurantoin [place]/M-Cryst 100 mg PO Q12HR #14 capsule 03/11/18 Unknown Rx [Macrobid CAP] Ondansetron [Zofran Odt] 4 mg PO Q8HR PRN #10 tab.rapdis 03/11/18 Unknown Rx Cetirizine HCl [ZyrTEC] 10 mg PO QAM 14 Days #14 capsule 01/07/19 Unknown Rx Fluticasone [Flonase] 1 spray NS QDAY 14 Days #1 bottle 01/07/19 Unknown Rx Allergies Allergy/AdvReac Type Severity Reaction Status Date / Time No Known Allergies Allergy Verified 10/25/21 16:03 ED Review of Systems ROS: Stated complaint: CHEST PAIN Other details as noted in HPI ED Past Medical Hx - Past Medical History Previous Medical History?: No Hx Psychiatric Treatment: Yes (anxiety) - Surgical History Past Surgical History?: No - Social History Smoking Status: Never Smoker Substance Use Type: None - Medications Home Medications: Home Medications Medication Instructions Recorded Confirmed Last Taken Type Ibuprofen [Motrin] 600 mg PO Q8H PRN #30 tablet 11/16/17 10/25/21 Unknown Rx hydrOXYzine HCL [Hydroxyzine HCl] 25 mg PO Q8H PRN #12 tablet 11/16/17 10/25/21 Unknown Rx Sulfamethoxazole/Trimethoprim 1 each PO BID 5 Days #10 tablet 01/25/18 10/25/21 Unknown Rx [Bactrim DS TAB] Nitrofurantoin [place]/M-Cryst 100 mg PO Q12HR #14 capsule 03/11/18 10/25/21 Unknown Rx [Macrobid CAP] Ondansetron [Zofran Odt] 4 mg PO Q8HR PRN #10 tab.rapdis 03/11/18 10/25/21 Unknown Rx Cetirizine HCl [ZyrTEC] 10 mg PO QAM 14 Days #14 capsule 01/07/19 10/25/21 Unknown Rx Fluticasone [Flonase] 1 spray NS QDAY 14 Days #1 bottle 01/07/19 10/25/21 Unknown Rx ED Physical Exam - General Limitations: No Limitations General appearance: alert, in no apparent distress - Head Head exam: Present: atraumatic, normocephalic - Eye Eye exam: Present: normal appearance - ENT ENT exam: Present: mucous membranes moist, normal external ear exam - Neck Neck exam: Present: normal inspection, full ROM - Respiratory Respiratory exam: Present: normal lung sounds bilaterally. Absent: respiratory distress, chest wall tenderness, accessory muscle use - Cardiovascular Cardiovascular Exam: Present: regular rate, normal rhythm. Absent: systolic murmur, diastolic murmur, rubs, gallop - GI/Abdominal GI/Abdominal exam: Present: soft, normal bowel sounds - Extremities Exam Extremities exam: Present: normal inspection - Back Exam Back exam: Present: normal inspection - Neurological Exam Neurological exam: Present: alert, oriented X3 - Psychiatric Psychiatric exam: Present: normal affect, normal mood - Skin Skin exam: Present: warm, dry, intact, normal color. Absent: rash ED Course Vital Signs 11/16/21 05:53 Temperature 98.0 F Pulse Rate 104 H Respiratory 16 Rate Blood Pressure 123/77 O2 Sat by Pulse 100 Oximetry ED Medical Decision Making - Radiology Data Radiology results: report reviewed Institution [facility] 1 Approval Date 2021-11-16 09:34:37 Other Patient ID My Comment(s) Study Comments [facility] [address] [place] [address] XRay Report Signed Patient: MARSHA JORDAN MR#: [id number] : 1995 Acct:[id number] Age/Sex: 25 / F ADM Date: 11/16/21 Loc: ED Attending Dr: Ordering Physician: MATEUSZ LEIVA Date of Service: 11/16/21 Procedure(s): XR chest routine 2V Accession Number(s): [id number] cc: MATEUSZ LEIVA Fluoro Time In Minutes: CHEST 2 VIEWS INDICATION / CLINICAL INFORMATION: chest pain. COMPARISON: Chest x-ray 01/07/2019 FINDINGS: SUPPORT DEVICES: None. HEART / MEDIASTINUM: No significant abnormality. LUNGS / PLEURA: No significant pulmonary or pleural abnormality. No pneumothorax. ADDITIONAL FINDINGS: No significant additional findings. IMPRESSION: 1. No acute findings. Signer Name: Cheko Gruber MD Signed: 11/16/2021 9:28 AM Workstation Name: [id number] Transcribed By: TL Dictated By: Cheko Gruber MD Electronically Authenticated By: Cheko Gruber MD Signed Date/Time: 11/16/21927 DD/ 7 TD/TT: - Medical Decision Making 25 y/o female comes in for SANTIAGO that she has had intermittently for several months. Patient reports that she is scheduled for CT scan on November 30, 2021. Patient also complains of racing heart rates shortness of breath and chest pain. She states chest pain has resolved shortness of breath is just slight and racing heart rate has improved. She also reports that her legs feel like they are warm intermittently and started yesterday. Patient does report she suffers from anxiety. She does have a primary care provider but is currently on no anxiety medications. Patient reports that she has a 2-year-old and a 8-month-old at home. She states that she sometimes feels overwhelmed. She denies any suicidal or homicidal ideation. She does have a history of anxiety and actually was in a mental hospital for a few days per patient. Patient has not taken anything for headaches or symptoms as she is breast-feeding. Denies any fever chills no nausea no vomiting. Do not feel patient is having any ACS. Chest pain has improve. I feel her symptoms are due to anxiety. I did discuss with patient to keep her appointment for her CT scan of her head that her primary care provider ordered. I discussed with patient modalities for relaxing consisting of meditation walks soothing music getting time for herself. I discussed with patient would like to refer her to mental health so she is able to get some more anxiety resources. Patient verbalized understanding Critical care attestation.: If time is entered above; I have spent that time in minutes in the direct care of this critically ill patient, excluding procedure time. ED Disposition Clinical Impression: Anxiety, Chronic headache Disposition: 01 HOME / SELF CARE / HOMELESS Is pt being admited?: No Does the pt Need Aspirin: No Condition: Stable Instructions: Managing Anxiety, Adult Additional Instructions: Recommend meditation, long walks. Time by herself. Be sure to sleep at least 8 hours. Try taking Tylenol for your headache. Keep your appointment for your CT scan. Follow-up with your primary care provider. I did refer you to a mental health provider please follow-up with them as well. Referrals: PRIMARY CAREMD [Primary Care Provider] - 3-5 Days [facility] [Outside] - 3-5 Days [facility] [Other] - 3-5 Days Time of Disposition: 12:18
[2021-11-16 12:24] VITALS: BP 120/70
--- NOTE | 2021-11-19 10:44 | Electrocardiograph Report ---
[facility] Test Date: 2021-11-17 Test Time: 05:37:45 Pat Name: MARSHA JORDAN Department: Room: Gender: F [employer]: MANPREET : 1995 Requested By: MATEUSZ LEIVA Order Number: [id number] Reading MD: Davion Chairez Measurements Intervals [place] Rate: 105 P: 53 NE: 177 QRS: 32 QRSD: 80 T: 46 QT: 324 QTc: 428 Interpretive Statements Sinus tachycardia Probable left atrial enlargement Compared to ECG 10/09/2021 00:13:15 Sinus rate has increased Electronically Signed On 11-19-2021 10:44:30 EST by Davion Chairez
== END 2021-11-16 12:23 | disposition home or self-care (01) ==
LOC: ED 05:39
DX: F41.9 Anxiety disorder, unspecified (principal); R51.9 Headache, unspecified
CPT/HCPCS: 71046; 93005; 99283

== ENCOUNTER 2021-11-17 03:07 | Emergency (ER) | payer MEDICAID ==
[2021-11-17] MEDS ORDERED: SODIUM CHLORIDE 0.9% 1000 ML 1,000 ML IV ONE (04:18)
--- NOTE | 2021-11-17 04:27 | Emergency Department Report ---
HPI - General Chief Complaint: Anxiety Time Seen by Provider: 11/17/21 03:52 - HPI HPI: Room 22 The patient is a 25-year-old female present with a chief complaint of headache palpitations and paresthesias. Patient has a history of anxiety and states she has had an intermittent headache for months. Patient states this evening palpitations headache. Patient states she has had tingling of her extremities as well as shortness of breath. Patient denies history of fever or cough. Patient admits to nausea but denies vomiting. Patient denies pleurisy. Patient states she normally has an elevated heart rate with her anxiety attacks ED Past Medical Hx - Past Medical History Previous Medical History?: Yes Hx Psychiatric Treatment: Yes (anxiety) - Surgical History Past Surgical History?: No - Family History Family history: no significant - Social History Smoking Status: Never Smoker Substance Use Type: None, Other (CBD oil) - Medications Home Medications: Home Medications Medication Instructions Recorded Confirmed Last Taken Type Ibuprofen [Motrin] 600 mg PO Q8H PRN #30 tablet 11/16/17 10/25/21 Unknown Rx hydrOXYzine HCL [Hydroxyzine HCl] 25 mg PO Q8H PRN #12 tablet 11/16/17 10/25/21 Unknown Rx Sulfamethoxazole/Trimethoprim 1 each PO BID 5 Days #10 tablet 01/25/18 10/25/21 Unknown Rx [Bactrim DS TAB] Nitrofurantoin [place]/M-Cryst 100 mg PO Q12HR #14 capsule 03/11/18 10/25/21 Unknown Rx [Macrobid CAP] Ondansetron [Zofran Odt] 4 mg PO Q8HR PRN #10 tab.rapdis 03/11/18 10/25/21 Unknown Rx Cetirizine HCl [ZyrTEC] 10 mg PO QAM 14 Days #14 capsule 01/07/19 10/25/21 Unknown Rx Fluticasone [Flonase] 1 spray NS QDAY 14 Days #1 bottle 01/07/19 10/25/21 Unknown Rx LORazepam [Ativan] 0.5 mg PO BID PRN #5 tab 11/17/21 Unknown Rx ED Review of Systems ROS: Stated complaint: ANXIETY Other details as noted in HPI Constitutional: denies: fever Eyes: denies: eye pain ENT: denies: throat pain Respiratory: shortness of breath. denies: cough Cardiovascular: palpitations Endocrine: no symptoms reported Gastrointestinal: nausea Genitourinary: denies: dysuria Musculoskeletal: denies: back pain Neurological: headache Physical Exam - Physical Exam Vital Signs: Vital Signs 11/17/21 03:13 Temperature 98 F Pulse Rate 150 H Respiratory 18 Rate Blood Pressure 150/83 [Right] O2 Sat by Pulse 100 Oximetry Physical Exam: GENERAL: The patient is well-developed well-nourished female lying on stretcher not appearing to be in acute distress. [] HEENT: Normocephalic. Atraumatic. Extraocular motions are intact. Patient has moist mucous membranes. NECK: Supple. Trachea midline CHEST/LUNGS: Clear to auscultation. There is no respiratory distress noted. HEART/CARDIOVASCULAR: Regular. There is no tachycardia. There is no gallop rub or murmur. ABDOMEN: Abdomen is soft, nontender. Patient has normal bowel sounds. There is no abdominal distention. SKIN: There is no rash. There is no edema. There is no diaphoresis. NEURO: The patient is awake, alert, and oriented. The patient is cooperative. The patient has no focal neurologic deficits. The patient has normal speech. Cranial nerves II through XII grossly intact. GCS 15. Moves all extremities well MUSCULOSKELETAL: There is no evidence of acute injury. ED Course Vital Signs 11/17/21 03:13 Temperature 98 F Pulse Rate 150 H Respiratory 18 Rate Blood Pressure 150/83 [Right] O2 Sat by Pulse 100 Oximetry ED Medical Decision Making - Lab Data Result diagrams: 11/17/21 03:30 11/17/21 03:30 - EKG Data -: EKG Interpreted by Ar EKG shows normal: sinus rhythm, axis, intervals, QRS complexes, ST-T waves Rate: tachycardia (105 bpm) - EKG Data When compared to previous EKG there are: previous EKG unavailable Interpretation: other (No ischemic changes seen) - Radiology Data Radiology results: report reviewed (CT head), image reviewed (CT head) [facility] [address] [place] [address] Cat Scan Report Signed Patient: MARSHA JORDAN MR#: [id number] : 1995 Acct:[id number] Age/Sex: 25 / F ADM Date: 11/17/21 Loc: ED Attending Dr: Ordering Physician: VADIM PAGE MD Date of Service: 11/17/21 Procedure(s): CT head/brain wo con Accession Number(s): [id number] cc: VADIM PAGE MD CT HEAD WITHOUT CONTRAST INDICATION / CLINICAL INFORMATION: Headache. TECHNIQUE: All CT scans at this location are performed using CT dose reduction for ALARA by means of automated exposure control. COMPARISON: None available. FINDINGS: HEMORRHAGE: None. EXTRA-AXIAL SPACES: Normal in size and morphology for the patient's age. VENTRICULAR SYSTEM: Normal in size and morphology for the patient's age. CEREBRAL PARENCHYMA: No significant abnormality. No acute territorial infarct. MIDLINE SHIFT / HERNIATION: None. CEREBELLUM / BRAINSTEM: No significant abnormality. ORBITS: Normal as visualized SOFT TISSUES: No significant abnormality. SKULL: No significant abnormality. PARANASAL SINUSES / MASTOID AIR CELLS: Normal as visualized ADDITIONAL FINDINGS: None. IMPRESSION: 1. No acute intracranial abnormality. Signer Name: Joe Barnett DO Signed: 11/17/2021 5:10 AM Workstation Name: [id number] Transcribed By: BAHMAN Dictated By: JOE BARNETT DO Electronically Authenticated By: JOE BARNETT DO Signed Date/Time: 11/17/21509 DD/ 7 TD/TT: Print Cancel - Differential Diagnosis Anxiety, symptomatic anemia, hypothyroidism, PE Critical care attestation.: If time is entered above; I have spent that time in minutes in the direct care of this critically ill patient, excluding procedure time. ED Disposition Clinical Impression: Anxiety Disposition: 01 HOME / SELF CARE / HOMELESS Is pt being admited?: No Does the pt Need Aspirin: No Condition: Stable Instructions: Panic Attack, Managing Anxiety, Adult Additional Instructions: Return to the emergency department should you develop worsening symptoms, inability to tolerate food or liquids, high fever or any other concerns Prescriptions: LORazepam [Ativan] 0.5 mg PO BID PRN #5 tab PRN Reason: Anxiety Referrals: PRIMARY CARE, [Primary Care Provider] - 3-5 Days
[2021-11-17 04:32] LABS: Basophils % (Auto) 0.6 % (0.0-1.8); Eosinophils % (Auto) 0.7 % (0.0-4.3); Hematocrit 43.9 % (30.3-42.9); Hemoglobin 14.2 gm/dl (10.1-14.3); Lymphocytes # (Auto) 2.5 K/mm3 (1.2-5.4); Lymphocytes % (Auto) 48.8 % (13.4-35.0); Mean Corpuscular HGB Conc 32 % (30-34); Mean Corpuscular Volume 98 fl (79-97); Monocytes # (Auto) 0.6 K/mm3 (0.0-0.8); Monocytes % (Auto) 11.9 % (0.0-7.3); Platelet Count 361 K/mm3 (140-440); Red Blood Count 4.48 M/mm3 (3.65-5.03); Red Cell Distribution Width 12.9 % (13.2-15.2)
[2021-11-17 04:48] LABS: Blood Urea Nitrogen 7 mg/dL (7-17); Calcium 9.5 mg/dL (8.4-10.2); Hemolysis Index 22
[2021-11-17 04:58] LABS: Free T4 (Free Thyroxine) 1.31 ng/dL (0.76-1.46)
[2021-11-17 05:12] LABS: BUN/Creatinine Ratio 12
--- NOTE | 2021-11-17 05:14 | Cat Scan Report ---
CT HEAD WITHOUT CONTRAST INDICATION / CLINICAL INFORMATION: Headache. TECHNIQUE: All CT scans at this location are performed using CT dose reduction for ALARA by means of automated exposure control. COMPARISON: None available. FINDINGS: HEMORRHAGE: None. EXTRA-AXIAL SPACES: Normal in size and morphology for the patient's age. VENTRICULAR SYSTEM: Normal in size and morphology for the patient's age. CEREBRAL PARENCHYMA: No significant abnormality. No acute territorial infarct. MIDLINE SHIFT / HERNIATION: None. CEREBELLUM / BRAINSTEM: No significant abnormality. ORBITS: Normal as visualized SOFT TISSUES: No significant abnormality. SKULL: No significant abnormality. PARANASAL SINUSES / MASTOID AIR CELLS: Normal as visualized ADDITIONAL FINDINGS: None. IMPRESSION: 1. No acute intracranial abnormality. Signer Name: Joe Barnett DO Signed: 11/17/2021 5:10 AM Workstation Name: [id number]
[2021-11-17] MEDS ORDERED: LORazepam 2 MG/ML VIAL IV ONE (05:25)
--- NOTE | 2021-11-17 06:08 | XRay Report ---
CHEST 1 VIEW 11/17/2021 5:34 AM INDICATION / CLINICAL INFORMATION: Shortness of breath. COMPARISON: 11/16/2021 FINDINGS: SUPPORT DEVICES: None. HEART / MEDIASTINUM: No significant abnormality. LUNGS / PLEURA: No significant pulmonary or pleural abnormality. No pneumothorax. ADDITIONAL FINDINGS: No significant additional findings. IMPRESSION: 1. No acute findings. Signer Name: Joe Barnett DO Signed: 11/17/2021 6:03 AM Workstation Name: [id number]
[2021-11-17 07:57] VITALS: BP 118/68
== END 2021-11-17 08:57 | disposition home or self-care (01) ==
LOC: ED 03:07
DX: F41.9 Anxiety disorder, unspecified (principal)
CPT/HCPCS: 36415; 70450; 71045; 80048; 83735; 84439; 84443; 84484; 84703; 85025; 85379; 96361; 96374; 99284; J2060; J7030; Q0162

== ENCOUNTER 2022-07-03 22:19 | Emergency (ER) | payer MEDICAID ==
[2022-07-04] MEDS ORDERED: BUTALB/ACETAMINOPHEN/CAFFEINE TAB PO ONE (06:44)
[2022-07-04] MEDS ORDERED: predniSONE 20 MG TAB PO ONE (06:44)
[2022-07-04] MEDS ORDERED: IBUPROFEN 600 MG TAB PO ONE (06:44)
--- NOTE | 2022-07-04 06:45 | Emergency Department Report ---
- General Chief Complaint: Upper Respiratory Infection Stated Complaint: SOB Source: patient Mode of arrival: Ambulatory Limitations: No Limitations - History of Present Illness Initial Comments: Patient is a 26-year-old -Luxembourger female with a history of anxiety presents to the ED with complaint of acute onset persistent diffuse body aches and pains, nasal and sinus congestion, frontal sinus pressure and mild dry cough for the last 1 week, worse in the last 2 days. Patient states that she has also been experiencing persistent chills for the last 3 days. Patient denies sore throat, dizziness, syncope, chest pain, shortness of breath, abdominal pain, nausea and vomiting or diarrhea, dysuria, urinary frequency and urgency, vaginal bleeding or vaginal discharge. MD Complaint: cough, rhinorrhea, nasal congestion, sinus pain, other (Body aches and pains) -: Gradual, week(s) (1) Severity: moderate Severity scale (0 -10): 5 Quality: sharp, aching Consistency: constant Improves With: nothing Worsens With: nothing Associated Symptoms: denies other symptoms, fever, chills, myalgias, headache, rhinorrhea, nasal congestion, cough. denies: diaphoresis, sore throat, chest pain, shortness of breath, abdominal pain, nausea, vomiting, diarrhea, dysuria, rash, confusion, right sweats, weight loss, epistaxis, hoarseness Treatments Prior to Arrival: none - Related Data Previous Rx's Medication Instructions Recorded Last Taken Type Ibuprofen [Motrin] 600 mg PO Q8H PRN #30 tablet 11/16/17 Unknown Rx hydrOXYzine HCL [Hydroxyzine HCl] 25 mg PO Q8H PRN #12 tablet 11/16/17 Unknown Rx Sulfamethoxazole/Trimethoprim 1 each PO BID 5 Days #10 tablet 01/25/18 Unknown Rx [Bactrim DS TAB] Nitrofurantoin [place]/M-Cryst 100 mg PO Q12HR #14 capsule 03/11/18 Unknown Rx [Macrobid CAP] Ondansetron [Zofran Odt] 4 mg PO Q8HR PRN #10 tab.rapdis 03/11/18 Unknown Rx Cetirizine HCl [ZyrTEC] 10 mg PO QAM 14 Days #14 capsule 01/07/19 Unknown Rx Fluticasone [Flonase] 1 spray NS QDAY 14 Days #1 bottle 01/07/19 Unknown Rx LORazepam [Ativan] 0.5 mg PO BID PRN #5 tab 11/17/21 Unknown Rx Amoxicillin [Trimox CAP] 500 mg PO Q8H #30 capsule 07/04/22 Unknown Rx Butalb/Acetamin/Caff 50-325-40 1 - 2 tab PO Q6HR PRN #12 tab 07/04/22 Unknown Rx [Fioricet 50-325-40] Cetirizine HCl [Zyrtec 10mg tab] 10 mg PO DAILY #30 tab 07/04/22 Unknown Rx Ibuprofen [Motrin] 600 mg PO Q8H PRN #30 tablet 07/04/22 Unknown Rx Allergies Allergy/AdvReac Type Severity Reaction Status Date / Time No Known Allergies Allergy Verified 10/25/21 16:03 ED Review of Systems ROS: Stated complaint: SOB Other details as noted in HPI Constitutional: denies: chills, fever Eyes: denies: eye pain, eye discharge, vision change ENT: congestion, other (Frontal sinus pressure). denies: ear pain, throat pain Respiratory: cough. denies: shortness of breath, wheezing Cardiovascular: denies: chest pain, palpitations Endocrine: no symptoms reported Gastrointestinal: denies: abdominal pain, nausea, vomiting, diarrhea Genitourinary: denies: urgency, dysuria, discharge Musculoskeletal: denies: back pain, joint swelling, arthralgia Skin: denies: rash, lesions Neurological: headache (Frontal headache). denies: weakness, paresthesias Psychiatric: denies: anxiety, depression Hematological/Lymphatic: denies: easy bleeding, easy bruising ED Past Medical Hx - Past Medical History Hx Psychiatric Treatment: Yes (anxiety) - Social History Smoking Status: Never Smoker Substance Use Type: None, Other (CBD oil) - Medications Home Medications: Home Medications Medication Instructions Recorded Confirmed Last Taken Type Ibuprofen [Motrin] 600 mg PO Q8H PRN #30 tablet 11/16/17 10/25/21 Unknown Rx hydrOXYzine HCL [Hydroxyzine HCl] 25 mg PO Q8H PRN #12 tablet 11/16/17 10/25/21 Unknown Rx Sulfamethoxazole/Trimethoprim 1 each PO BID 5 Days #10 tablet 01/25/18 10/25/21 Unknown Rx [Bactrim DS TAB] Nitrofurantoin [place]/M-Cryst 100 mg PO Q12HR #14 capsule 03/11/18 10/25/21 Unknown Rx [Macrobid CAP] Ondansetron [Zofran Odt] 4 mg PO Q8HR PRN #10 tab.rapdis 03/11/18 10/25/21 Unknown Rx Cetirizine HCl [ZyrTEC] 10 mg PO QAM 14 Days #14 capsule 01/07/19 10/25/21 Unknown Rx Fluticasone [Flonase] 1 spray NS QDAY 14 Days #1 bottle 01/07/19 10/25/21 Unknown Rx LORazepam [Ativan] 0.5 mg PO BID PRN #5 tab 11/17/21 Unknown Rx Amoxicillin [Trimox CAP] 500 mg PO Q8H #30 capsule 07/04/22 Unknown Rx Butalb/Acetamin/Caff 50-325-40 1 - 2 tab PO Q6HR PRN #12 tab 07/04/22 Unknown Rx [Fioricet 50-325-40] Cetirizine HCl [Zyrtec 10mg tab] 10 mg PO DAILY #30 tab 07/04/22 Unknown Rx Ibuprofen [Motrin] 600 mg PO Q8H PRN #30 tablet 07/04/22 Unknown Rx ED Physical Exam - General Limitations: No Limitations General appearance: alert, in no apparent distress - Head Head exam: Present: atraumatic, normocephalic, normal inspection - Eye Eye exam: Present: normal appearance, PERRL, EOMI Pupils: Present: normal accommodation - ENT ENT exam: Present: normal orophraynx, mucous membranes moist, TM's normal bilaterally, normal external ear exam, other (Grossly congested nasal passages; palpable frontal sinus tenderness) - Neck Neck exam: Present: normal inspection, full ROM, lymphadenopathy. Absent: tenderness - Respiratory Respiratory exam: Present: normal lung sounds bilaterally. Absent: respiratory distress, wheezes, rales, rhonchi, chest wall tenderness, accessory muscle use, decreased breath sounds, prolonged expiratory, other - Cardiovascular Cardiovascular Exam: Present: normal rhythm, tachycardia, normal heart sounds. Absent: systolic murmur, diastolic murmur, rubs, gallop - GI/Abdominal GI/Abdominal exam: Present: soft, normal bowel sounds. Absent: tenderness, guarding, rebound, hyperactive bowel sounds, hypoactive bowel sounds, organomegaly - Extremities Exam Extremities exam: Present: normal inspection, full ROM, normal capillary refill. Absent: tenderness - Back Exam Back exam: Present: normal inspection, full ROM. Absent: tenderness, CVA tenderness (R), CVA tenderness (L), muscle spasm, paraspinal tenderness, vertebral tenderness - Neurological Exam Neurological exam: Present: alert, oriented X3, CN II-XII intact, normal gait, reflexes normal - Psychiatric Psychiatric exam: Present: normal affect, normal mood - Skin Skin exam: Present: warm, dry, intact, normal color. Absent: rash ED Course Vital Signs 07/03/22 22:29 Temperature 98.2 F Pulse Rate 122 H Respiratory 18 Rate Blood Pressure 150/76 O2 Sat by Pulse 100 Oximetry ED Medical Decision Making - Medical Decision Making This is a 26-year-old -Luxembourger female with a history of anxiety presents to the ED with complaint of acute onset persistent diffuse body aches and pains, nasal and sinus congestion, frontal sinus pressure and mild dry cough for the last 1 week, worse in the last 2 days. Patient states that she has also been experiencing persistent chills for the last 3 days. In the ED, patient is alert and oriented x3 and is not in any distress. Patient is anxious, ta chycardic but afebrile. Patient was treated for pain in the ED and discharged home on medications for pain based on the history and physical exam findings. Patient was advised return to the ED immediately if symptoms get worse. - Differential Diagnosis URI; sinusitis; bronchitis; rhinitis; viral syndrome Critical care attestation.: If time is entered above; I have spent that time in minutes in the direct care of this critically ill patient, excluding procedure time. ED Disposition Clinical Impression: Acute upper respiratory infection, Sinus headache Acute frontal sinusitis, unspecified Qualifiers: Recurrence: non-recurrent Qualified Code(s): J01.10 - Acute frontal sinusitis, unspecified Disposition: 01 HOME / SELF CARE / HOMELESS Is pt being admited?: No Does the pt Need Aspirin: No Condition: Stable Instructions: Sinusitis, Adult, [id number], Upper Respiratory Infection, Adult, [id number], Cough, Adult, [id number], Sinus Headache Additional Instructions: Take medication with food, drink plenty of fluids, follow-up with your primary care physician in 7 to 10 days for reevaluation. Return to the ED immediately if symptoms get worse. Prescriptions: Butalb/Acetamin/Caff 50-325-40 [Fioricet 50-325-40] 1 - 2 tab PO Q6HR PRN #12 tab PRN Reason: Headache Ibuprofen [Motrin] 600 mg PO Q8H PRN #30 tablet PRN Reason: Pain Amoxicillin [Trimox CAP] 500 mg PO Q8H #30 capsule Cetirizine HCl [Zyrtec 10mg tab] 10 mg PO DAILY #30 tab Referrals: [facility] [Provider Group] - 3-5 Days Time of Disposition: 06:46 Print Language: CITIZEN OF [place]
[2022-07-04 07:12] VITALS: BP 132/67
== END 2022-07-04 07:12 | disposition home or self-care (01) ==
LOC: ED 22:19
DX: J06.9 Acute upper respiratory infection, unspecified (principal); R51.9 Headache, unspecified; J01.10 Acute frontal sinusitis, unspecified
CPT/HCPCS: 99282